=== PATIENT | male | born 1955 | race Caucasian/White ===

== ENCOUNTER 2019-11-09 07:06 | Day surgery (SDC) | payer BC, MEDICARE ==
[2019-11-02 12:45] LABS: BASOPHILS # (AUTO) 0.1 X10'3 (0-0.2); BASOPHILS % (AUTO) 1.4 % (0-1); EOSINOPHILS # (AUTO) 0.1 X10'3 (0-0.9); EOSINOPHILS % (AUTO) 0.9 % (0-6); LYMPHOCYTES # (AUTO) 1.6 X10'3 (1.1-4.8); LYMPHOCYTES % (AUTO) 26.8 % (21-51); MEAN CORPUSCULAR HEMOGLOBIN 29.1 PG (27.0-31.0); MEAN CORPUSCULAR HGB CONC 33.5 g/dL (33.0-36.5); MEAN CORPUSCULAR VOLUME 86.8 FL (78-98); MEAN PLATELET VOLUME 9.2 FL (7.4-10.4); MONOCYTES # (AUTO) 0.5 X10'3 (0-0.9); MONOCYTES % (AUTO) 8.5 % (2-12); NEUTROPHILS # (AUTO) 3.6 X10'3 (1.8-7.7); NEUTROPHILS % (AUTO) 62.4 % (42-75); PRE OP HEMATOCRIT 48.4 % (42.0-52.0); PRE OP HEMOGLOBIN 16.2 g/dL (14.0-17.9); PRE OP PLATELET COUNT 214 X10'3 (140-440); RED BLOOD COUNT 5.57 X10'6 (4.70-6.10); RED CELL DISTRIBUTION WIDTH 14.5 % (11.5-14.5)
[2019-11-02 12:53] LABS: PRE OP PROTIME 10.3 SECONDS (9.0-12.0)
[2019-11-02 12:54] LABS: ALBUMIN 4.1 G/DL (3.4-5.0); ALBUMIN/GLOBULIN RATIO 1.2 (1.1-1.5); ALKALINE PHOSPHATASE 78 IU/L (46-116); BLOOD UREA NITROGEN 16 MG/DL (7-18); BUN/CREATININE RATIO 15.8 (5.4-32.0); CALCIUM 9.2 MG/DL (8.5-10.1); CHLORIDE 104 MMOL/L (99-107); CREATININE 1.01 MG/DL (0.60-1.10); PRE OP ALT 22 U/L (30-65); PRE OP ANION GAP 5 (8-16); PRE OP AST 17 U/L (10-37); PRE OP BILIRUB, TOTAL 1.8 MG/DL (0.0-1.0); PRE OP GLUCOSE 93 MG/DL (70-104); PRE OP POTASSIUM 4.2 MMOL/L (3.4-5.1); PRE OP SODIUM 139 MMOL/L (135-145); TOTAL CARBON DIOXIDE 30.1 MMOL/L (24-32); TOTAL PROTEIN 7.4 G/DL (6.4-8.2); eGFR 74 ML/MIN
[2019-11-09] VITALS (24 sets, daily range): BP systolic 112–155; BP diastolic 49–99
[~2019-11-09] VITALS: Ht 185.4 cm; Wt 105.2 kg
[~2019-11-09 07:06] MED LIST: BUDE10.2 INH; BUDE10.26 INH; FLUT16SP26; MEPO100A SQ; albuterol 2.5 MG/3 ML nebule NEB ONE; famotidine 20mg tablet PO ONE; oxymetazoline 15 ML nasal spray NS PRN; ringers solution, lacted 1,000 ML IV SCH
[2019-11-09] MEDS ORDERED: cocaine 4% topical solution 4ml bottle ONE (07:08)
[2019-11-09] MEDS ORDERED: triamcinolone acetonide 40mg/ml inj ONE (07:08)
[2019-11-09] MEDS ORDERED: LIDOcaine 1% W/epiNEPHrine 1:100,000 20ml vial ONE (07:08)
[2019-11-09] MEDS ORDERED: cefTAZidime 1gm inj ONE (07:09)
[2019-11-09] MEDS ORDERED: oxymetazoline 15 ML nasal spray NS ONE (07:09)
[2019-11-09] MEDS ORDERED: BUPIVAcaine 0.5% W/EPI /PF 30ml vial ONE (07:09)
[2019-11-09] MEDS ORDERED: mupirocin 2% ointment 22GM ONE (07:09)
[2019-11-09] MEDS ORDERED: midazolam 2 mg/2 ml injection ONE (08:26)
[2019-11-09] MEDS ORDERED: propofol inj 20 ML IV ONE (08:26)
[2019-11-09] MEDS ORDERED: fentaNYL/PF 50MCG/1 ML 2ML syringe ONE (08:26)
[2019-11-09] MEDS ORDERED: rocuronium 10mg/ml inj IV ONE (08:26)
[2019-11-09] MEDS ORDERED: ringers solution, lacted 1,000 ML IV SCH (08:31)
[2019-11-09] MEDS ORDERED: ondansetron/PF 4mg/2ml inj IV PRN (08:35)
[2019-11-09] MEDS ORDERED: morphine 2 MG/ML inj. syringe IV PRN (08:35)
[2019-11-09] MEDS ORDERED: meperidine/PF 25mg/ml syringe IV PRN ×2 (08:35)
[2019-11-09] MEDS ORDERED: morphine 4 MG/ML inj SYRINge IV PRN (08:35)
[2019-11-09] MEDS ORDERED: sevoflurane 250ml liquid IH ONE (08:42)
[2019-11-09] MEDS ORDERED: ceFAZolin 1000mg inj ONE ×2 (09:08)
[2019-11-09] MEDS ORDERED: dexamethasone sod phosphate 4mg/ml inj. ONE (09:09)
[2019-11-09] MEDS ORDERED: ondansetron/PF 4mg/2ml inj ONE (09:40)
[2019-11-09] MEDS ORDERED: sugammadex 200mg/2ml injection IV ONE (09:54)
--- NOTE | 2019-11-09 10:09 | NUR ---
Received from OR via [facility], accompanied by Anesthesiologist DR KAUFMAN and report given by Anesthesiologist. PT DROWSY, DENIES PAIN, BILAT NARES W/COTTONOIDS PRESENT, PT NOSE SLIGHTLY BLEEDING, MUSTACHE W/4X4 PLACED. Addendum: 11/09/19 at 1046 by Yesi Robertson RN Amended: Links added.
[2019-11-09] MEDS: proCHLORperazine 10 MG/2 ml inj IV PRN ×2 (10:49→11:21)
[2019-11-09] MEDS ORDERED: salt irrigation nasal spray 45 ML SPRAY NS PRN (11:25)
[2019-11-09] MEDS ORDERED: hydrALAZINE 20mg/ml inj. IV PRN (12:00)
[2019-11-09] MEDS ORDERED: hydrALAZINE 20mg/ml inj. IV ONE (12:04)
[2019-11-09] MEDS: meperidine/PF 25mg/ml syringe IV PRN ×2 (12:05→12:24)
[2019-11-09] MEDS ORDERED: mupirocin 2% nasal ointment 1gm UD NS SCH (13:00)
[2019-11-09] MEDS ORDERED: HYDROcodone/acetaminophen 5mg/325mg tablet PO ONE (14:05)
[2019-11-09] MEDS ORDERED: HYDROcodone/acetaminophen 10/325mg tab PO ONE (14:10)
--- NOTE | 2019-11-09 14:19 | NUR ---
DR AMOR IN TO SEE PT, UPDATED, ORDERS TO D/C PT HOME AND HAVE PT COME IN HIS OFFICE IN MORNING TO REMOVE COTTONOIDS. ESTIMATED BLOOD LOSS IN RECOVERY IS APPROXIMATELY 100 ML. PAIN MEDICATION GIVEN TO PT PRIOR TO D/C, D/C INSTRUCTIONS GIVEN AND GONE OVER W/PT AND PTS WHOM VERBALIZE UNDERSTANDING. PT D/CD TO HOME VIA W/C TO PRIVATE VEHICLE W/O INCIDENT. Addendum: 11/09/19 at 1504 by Yesi Robertson RN Amended: Links added.
== END 2019-11-09 14:19 | disposition home or self-care (01) ==
LOC: PAS 07:06
PROVIDERS: ATTEND Otolaryngology
DX: J34.2 Deviated nasal septum (principal); J34.3 Hypertrophy of nasal turbinates; J34.89 Other specified disorders of nose and nasal sinuses; J33.8 Other polyp of sinus; J32.8 Other chronic sinusitis; J44.9 Chronic obstructive pulmonary disease, unspecified; E66.9 Obesity, unspecified; Z68.30 Body mass index [BMI] 30.0-30.9, adult; Z79.899 Other long term (current) drug therapy; Z79.01 Long term (current) use of anticoagulants; Z90.2 Acquired absence of lung [part of]; Z98.890 Other specified postprocedural states; Z87.891 Personal history of nicotine dependence; Z11.59 Encounter for screening for other viral diseases
CPT/HCPCS: 30140; 30520; 36415; 80053; 82948; 85025; 85576; 85610; 85730; 87635; 93005; 94640; 94760; A6402; C9250; C9399; J0360; J0690; J0713; J0780; J1100; J2175; J2250; J2405; J2704; J3010; J3301; J7040; J7120; A4618; A7000